=== PATIENT | female | born 1970 | race Caucasian/White ===

== ENCOUNTER 2019-02-05 00:05 | Outpatient (CLI) | payer OTHER, SELFPAY ==
--- NOTE | 2019-02-05 09:40 | DI.MAMMO_ITS ---
EXAM: MG MAMMO SCREENING CLINICAL HISTORY: screening. TECHNIQUE: Full field digital CC and MLO mammographic images were obtained with 3D tomosynthesis and utilizing computer aided detection (CAD). COMPARISON: [id number] available for comparison. FINDINGS: Masses/Architectural Distortion: None seen. Microcalcifications: No suspicious pleomorphic-type are seen. Skin Thickening/Nipple Retraction: None. IMPRESSION: 1. No significant interval change with no specific features of malignancy noted. 2. Unless there is more urgent need, screening mammography is recommended, as per [employer] guidelines. BI-RADS Cat 1 - Negative Breast Density - Category D - Extremely dense A negative radiographic report should not delay biopsy if a dominant or clinically suspicious mass is present. Up to ten percent of cancers are not identified on mammography. A negative report may reinforce clinical impression. Adenosis and dense breasts may obscure an underlying neoplasm. False positive reports average 6 to 10%. Patient will receive a letter notifying them of these results.
== END 2019-02-05 00:25 ==
PROVIDERS: PCP Nurse Practitioner Family; Visit Provider Nurse Practitioner Family
DX: Z12.31 Encounter for screening mammogram for malignant neoplasm of breast (principal)
CPT/HCPCS: 77063; 77067

== ENCOUNTER 2020-04-17 12:15 | Outpatient (REF) | payer OTHER, SELFPAY ==
--- NOTE | 2020-04-17 09:45 | PAPFT_PTH ---
PATIENT: YONI ALEJANDRE LOC: [facility] U#:[id number] AGE/SX: 49/F ROOM: RE04/17/[address]: ELBA Johns : 1970 BED: DIS: 04/17/2020 SPEC #: [id number] RECD: 04/17/20 13:11 STATUS: SUZAN RENayeli #: [id number] MALGORZATA: 04/17/20 09:[address]: Kiara Wheeler DEPT: [facility] Cytology RECD BY: Haven Cottrell ENTERED: 04/17/20 13:11 SP TYPE: PAPFT OTHR DR: Bobbi Obregon Tissues: 1 - CX/ENDOCX FOR PAP SMEARS Procedures: PAP THIN PREP/[facility] Screening HPV DNA PROBE Comments: [id number]
== END 2020-04-17 12:16 | disposition home or self-care (01) ==
LOC: LBN 12:15
PROVIDERS: PCP Nurse Practitioner Family; Visit Provider Nurse Practitioner Family
DX: Z12.4 Encounter for screening for malignant neoplasm of cervix (principal); Z11.51 Encounter for screening for human papillomavirus (HPV)
CPT/HCPCS: 88142; 87624

== ENCOUNTER 2024-05-14 09:58 | Outpatient (REF) | payer OTHER, SELFPAY ==
--- NOTE | 2024-05-14 09:45 | PAPFT_PTH ---
PATIENT: YONI ALEJANDRE LOC: [facility] U#:[id number] AGE/SX: 53/F ROOM: RE05/14/[address]: Gregoria Oakley NP : 1970 BED: DIS: 05/14/2024 SPEC #: [id number] RECD: 05/14/24 13:13 STATUS: SUZAN RENayeli #: [id number] MALGORZATA: 05/14/24 09:[address]: Gregoria Oakley NP DEPT: [facility] Cytology RECD BY: Haven Cottrell ENTERED: 05/14/24 13:13 SP TYPE: PAPFT OTHR DR: Bobbi Obregon Tissues: 1 - CX/ENDOCX FOR PAP SMEARS Procedures: PAP THIN PREP/[facility] Screening HPV DNA PROBE Comments: [id number] (HPV 16 & 18/45)
== END 2024-05-14 09:59 | disposition home or self-care (01) ==
LOC: LBN 09:58
PROVIDERS: PCP Nurse Practitioner Family; Visit Provider Nurse Practitioner Women's Health
DX: Z01.419 Encounter for gynecological examination (general) (routine) without abnormal findings (principal); Z30.431 Encounter for routine checking of intrauterine contraceptive device; D24.2 Benign neoplasm of left breast; Z12.4 Encounter for screening for malignant neoplasm of cervix
CPT/HCPCS: 88142; 87624